=== PATIENT | male | born 1955 | race Caucasian/White ===

== ENCOUNTER 2025-05-20 01:18 | Day surgery (SDC) | payer OTHER, SELFPAY ==
[2025-05-02 10:46] VITALS: BMI 38.5
--- OUTSIDE RECORDS SUMMARY | 2025-05-20 01:21 | XMS_ITS | Clinical Summary ---
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 Inject under the skin every 6 (six) months Active Active Problems No known active problems Social History Tobacco Use Types Packs/Day Years Used Date Smoking Tobacco: Never Assessed Sex and Gender Information Value Date Recorded Sex Assigned at Not on file Legal Sex Male 11:34 AM 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 Gender Identity Not on file Sexual Orientation Not on file Obstetrics History Last Filed Vital Signs Vital Sign Reading Time Taken Comments Blood Pressure 142/70 12/19/2024 8:37 AM 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 Pulse 92 12/19/2024 8:37 AM 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 Temperature 37.1 C (98.7 F) 12/19/2024 8:37 AM 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 Respiratory Rate 20 12/19/2024 8:37 AM 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 Oxygen Saturation 97% 12/19/2024 8:37 AM 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 Inhaled Oxygen Concentration - - Weight 114.8 kg (253 lb) 12/19/2024 8:37 AM 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 Height 172.7 cm (5' 8) 12/14/2024 12:12 PM 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 Body Mass Index 38.47 12/14/2024 12:12 PM 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 Plan of Treatment Health Maintenance Due Date Last Done Comments Colon Cancer Screening-Colonoscopy 1957 Depression Screening 1957 Fall Risk Assessment 1957 Hepatitis C Screening 1957 Prostate Cancer Screening-PSA 1957 Hepatitis B Screening 1975 Pneumococcal vaccine 65+ (1 of 1 - PCV) 2007 Zoster Vaccine (1 of 2) 2007 Abdominal Aortic Aneurysm (A AA) Screen 2022 Well Visit 65+ 2022 Covid-19 Vaccine (5 - 2023-2 5 season) 2024 11/30/2022, 11/09/2021, 02/13/2021, Additional history exists Influenza Vaccine (Season Ended) 2025 DTaP/Tdap/Td Vaccine (2 - Td or Tdap) 05/08/2031 05/08/[address] [place] [place] [id number] [facility] [address] Care Teams Assemblyman Or Woman Relationship Specialty Start Date End Date Nieves Dos Santos PA [address] [place] [id number] PCP - General Physician Police Worker 12/14/24
--- OUTSIDE RECORDS SUMMARY | 2025-05-20 01:21 | XMS_ITS | Data Portability ---
Author Organization [place] - [facility], Main Office Address [address] [place] [address] Assessment Encounter Date Assessment Date Assessment LastModified by Organization Details LastModified Time 07/08/2023 07/08/2023 cologuard negative Aug 2021 [email or web address] Not available 07/08/2023 09:05:05 Plan of Treatment Reminders Order Date Submit Date Provider Last Modified By Organization Details Last Modified Time Details Appointments None recorded. Lab lipid panel, serum 2022 023 RADHA Not available 3 16:33:24 CBC w/ auto diff 2022 023 [email or web address] 146 Not available 3 14:23:27 BMP, serum or plasma 2022 023 ac[facility]ford 146 Not available 14:23:27 hepatic function panel, serum 2022 023 acrawford 146 Not available 3 14:23:27 testosteron e, free + total, serum 2022 023 RADHA Not available 3 09:40:58 vitamin B12 + folate, serum or blood 2022 023 acrawford 146 Not available 3 14:23:26 TSH + free T4, serum 2022 023 acrawford 146 Not available 3 14:23:26 PSA, serum or plasma 2022 023 acrawford 146 Not available 3 14:23:27 HbA1c (hemoglobin A1c), blood 2022 023 acrawford 146 Not available 3 14:23:[address] referral 2022 023 [facility], [address] , [place], [address], 3 12:45:57 Procedures None recorded. Surgeries None recorded. Imaging None recorded. Medication Orders None recorded. Patient TargetsNo targets recorded. Patient InstructionsNo instructions recorded. 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 The patie nt will be conta cted to initi ate a new sampl e colle ction . TEST DESCR IPTIO N: [place] site algor ithmi c ulises sis of stool DNA-b ioaaron rivas with hemog lobin immun oassa y. Quant itati ve value s of indiv idual bioma rkers are not repor table and are not assoc iated with indiv idual bioma rker resul t refer ence range s. Colog uard is inten ded for color ectal cance r scree alfredo of adult s of eithe r sex, 45 years or older , who are at [facility] for color ectal cance r (CRC) . Colog uard has been appro tresa for use by the U.S. FDA. The perfo rmanc e of Colog uard was estab lishe d in a cross secti onal study of [facility] adult s aged 50-84 . Colog uard perfo rmanc e in patie nts ages 45 to 49 years was estim ated by sub-g roup ulises sis of near- age group s. Colon oscop ies perfo rmed for a posit ignacio resul t may find as the most clini jolanta signi fican t lesio n: color ectal cance r [4.0% ], advan shalini adeno ma (incl uding sessi le dipesh rafael polyp s great er than or equal to 1cm diame ter) [20%] or non- advan shalini adeno ma [31%] ; or no color ectal neopl adela [45%] . These estim ates are deriv ed from a prosp ectiv e cross -sect ional scree alfredo study of 0 indiv idual s at [place] [facility] risk for color ectal cance r who were scree collin with both Colog uard and colon oscop y. (Mynor Arreaga. et al, N Engl J Med 2014; 370(1 4):12 86-12 97.) Colog uard may produ ce a false negat ignacio or false posit ignacio resul t (no color ectal cance r or preca ncero us polyp prese nt at colon oscop y follo w up). A negat ignacio Colog uard test resul t does not guara ntee the absen ce of CRC or advan shalini adeno ma (pre- cance r). The curre nt Colog uard scree alfredo inter harry is every 3 years . (Amer ican Cance r Socie ty and U.S. Multi -Soci ety Task Force ). Colog uard perfo rmanc e data in a 0 patie nt pivot al study using colon oscop y as the refer ence metho d [facility] locat ion: www.e xactl abs.c om/re ignacio . Addit ional descr iptio n of the Colog uard test proce ss, warni ngs and preca ution s can be found at www.c ologu talia.c om. Not Available [facility] (Cologuard Orders Only) [address], [place], [address], 08/05/2021 22:13:27 08/25/20 21 08/25/2021 COLOG UARD cologuard result reportable negati ve negati ve NEGAT IGNACIO TEST RESUL T. A negat ignacio Colog uard resul t indic ates a low likel ihood that a color ectal cance r (CRC) or advan shalini adeno ma (flynn omato us polyp s with more advan shalini pre-m align ant featu res) is prese nt. The chanc e that a perso n with a negat ignacio Colog uard test has a color ectal cance r is less than 1 in 1500 (nega tive predi ctive value >99.9 %) or has an advan shalini adeno ma is less than 5.3% (nega tive predi ctive value 94.7% ). These data are based on a prosp ectiv e cross -sect ional study of ,00 0 indiv idual s at [place] risk for color ectal cance r who were scree collin with both Colog uard and colon oscop y. (Mynor Edmondson et al, N Engl J Med 2014; 370(1 4):12 86-12 97) The dony l value (refe rence range ) for this assay is negat ignacio. COLOG UARD RE-SC ELELN GUZMAN RECOM MENDA TION: Perio dic color ectal cance r scree alfredo is an impor tant part of preve ntive healt hcare for asymp tomat ic indiv idual s at [place] risk for color ectal cance r. Follo wing a negat ignacio Colog uard resul t, the Ameri can Cance r Socie ty and U.S. Multi -Soci ety Task Force scree alfredo guide lines recom mend a Colog uard re-sc reeveronica ng inter harry of 3 years . Refer ences : Ameri can Cance r Socie ty Guide line for Color ectal Cance r Scree alfredo: https ://maggie w.can cer.o rg/ca ncer/ colon -rect al-ca ncer/ detec tion- diagn osis- stagi ng/ac s-rec ommen datio ns.ht ml.; Jas TOVAR, Wilberto strong CR, Adair TaylorK, Color ectal Cance r Scree alfredo: Recom menda tions for Physi cians and Patie nts from the U.S. Multi -Soci ety Task Force on Color ectal Cance r Scresana fuentes , Am J Shayy flowersnte rolog y 2017; 112:1 016-1 030. TEST DESCR IPTIO N: [place] site algor ithmi c ulises sis of stool DNA-b micaela rivas with hemog lobin immun oassa y. Quant itati ve value s of indiv idual bioma rkers are not repor table and are not assoc iated with indiv idual bioma rker resul t refer ence range s. Colog uard is inten ded for color ectal cance r scree alfredo of adult s of eithe r sex, 45 years or older , who are at [facility] for color ectal cance r (CRC) . Colog uard has been appro tresa for use by the U.S. FDA. The perfo rmanc e of Colog uard was estab lishe d in a cross secti onal study of [facility] adult s aged 50-84 . Colog uard perfo rmanc e in patie nts ages 45 to 49 years was estim ated by sub-g roup ulises sis of near- age group s. Colon oscop ies perfo rmed for a posit ignacio resul t may find as the most clini jolanta signi colleen t lesio n: color ectal cance r [4.0% ], advan shalini adeno ma (incl uding sessi le dipesh rafael polyp s great er than or equal to 1cm diame ter) [20%] or non- advan shalini adeno ma [31%] ; or no color ectal neopl adela [45%] . These estim ates are deriv ed from a prosp ectiv e cross -sect ional scree alfredo study of 10,00 0 indiv idual s at [facility] risk for color ectal cance r who were scree collin with both Colog uard and colon oscop y. (Mynor Edmondson et al, N Engl J Med 2014; 370(1 4):12 86-12 97.) Colog uard may produ ce a false negat ignacio or false posit ignacio resul t (no color ectal cance r or preca ncero us polyp prese nt at colon oscop y follo w up). A negat ignacio Colog uard test resul t does not guara ntee the absen ce of CRC or advan shalini adeno ma (pre- cance r). The curre nt Colog uard scree alfredo inter harry is every 3 years . (Amer ican Cance r Socie ty and U.S. Multi -Soci ety Task Force ). Colog uard perfo rmanc e data in a 10,00 0 patie nt pivot al study using colon oscop y as the refer ence metho d can be acces sed at the follo wing locat ion: www.e xactl abs.c om/re sults . Addit ional descr iptio n of the Colog uard test proce ss, warni ngs and preca ution s can be found at www.c addison talia.c om. Not Available [facility] (Cologuard Orders Only) [address], [place], [address], 09/04/2021 21:25:02 Result Notes None recorded. Problems Name Problem SNOMED Code Status Onset Date Resolution Date Notes Provider Name and Address Organization Details Recorded Time Strain of hamstring tendon 484264694 Active 2021 Not Available formerly [facility] 3 18:03:17 Obstructive sleep apnea syndrome 15058941 Active Not Available [facility] 3 18:03:17 Psoriasis 5441301 Active 2021 Not Available formerly [facility] 3 18:03:17 Seasonal allergic rhinitis 886989897 Active 2022 LENNOX Pal [address], [place], [address] , [employer] 3 11:31:55 Fatigue 53526996 Active 2022 LENNOX Pal [address] [facility], [address], [place], [address] , [employer] 3 09:20:19 Problem Notes None recorded. Procedures Surgical History Date Name Laterality Status Provider Name and Address Organization Details Recorded Time 08/03/202 0 Oral surgery procedure completed Not Available formerly [facility] 01/08/2023 18:02:41 Orthopedic Surgery completed Not Available formerly [facility] 01/08/2023 18:02:41 Imaging Results None recorded. Procedure Notes None recorded. Medical Equipment None Reported. Allergies Allergen ID Allergen Name Allergen Category Reaction Reaction Severity Criticality Documentation Date Start Date Code Code System Note Provider Name and Address Organization Details Recorded Time 15389 Product containin g penicilli n (product) medicatio n Not available Not available Not available 01/08/2023 74060 8001 SNOMED Not Available formerly [facility] 18:04:26 Medications Name Sig Start Date Stop Date Status Note LastModified by Organization Details LastModified Time silver sulfadiazin e 1 % topical cream APPLY TO HAND WOUND BY TOPICAL ROUTE 2 TIMES DAILY 07/05 completed Not Available Not Available Not Available clindamycin HCl 300 mg capsule TAKE 2 CAPSULE IMMEDIATE LY. THEN TAKE 1 EVERY 6 HOURS UNTIL GONE 07/07 completed Not Available Not Available Not Available azithromyci n 250 mg tablet TAKE 2 TABLETS (500 MG) BY ORAL ROUTE ONCE DAILY FOR 1 DAY THEN 1 TABLET (250 MG) BY ORAL ROUTE ONCE DAILY FOR 4 DAYS 07/04 completed Not Available Not Available Not Available prednisone 20 mg tablet 07/04 completed Not Available Not Available Not Available clindamycin HCl 150 mg capsule DNC 07/04 completed Not Available Not Available Not Available sulfamethox azole 800 mg-trimetho prim 160 mg tablet Take 1 tablet every 12 hours by oral route. 07/04 completed Not Available Not Available Not Available betamethaso ne dipropionat e 0.05 % topical cream JAMES THIN LAYER EXT AA QD PRN 07/04 completed Not Available Not Available Not Available montelukast 10 mg tablet TAKE 1 TABLET BY MOUTH DAILY 03/30 completed Not Available Not Available Not Available clobetasol 0.05 % topical ointment APPLY A THIN LAYER TO THE AFFECTED AREA(S) BY TOPICAL ROUTE 2 TIMES PER DAY PRN active Not Available Not Available No t Available chlorhexidi ne gluconate 0.12 % mouthwash SWISH AND SPIT 10 TO 15 ML BID FOR 1 WEEK BEFORE AND AFTER SURGERY 07/05 completed Not Available Not Available Not Available Flonase Allergy Relief 50 mcg/actuati on nasal spray,suspe nsion [place] 1 spray every day by intranasa l route. 03/30 completed Not Available Not Available Not Available Vitals Date Recorded Body mass index (BMI) Body height Oxygen saturation Oxygen saturation in Arterial blood by Pulse oximetry Heart rate Body temperature Body weight Systolic And Diastolic Provider Name and Address Organization Details Last Updated DateTime 1 30 kg/m2 172.72 cm 97 % 97 % 64 /min 97.6 [degF] 92206.7 g 120/60 mm[Hg] Not Available [facility] 3 18:03:09 Date Recorded Body mass index (BMI) Body height Oxygen saturation Oxygen saturation in Arterial blood by Pulse oximetry Heart rate Respiratory rate Body temperature Body weight Systolic And Diastolic Provider Name and Address Organization Details Last Updated DateTime 1 29.8 kg/m2 172.72 cm 98 % 98 % 62 /min 16 /min 97.3 [degF] 29878.1 g 128/80 mm[Hg] Not Available [facility] 3 18:03:10 Date Recorded Body mass index (BMI) Body height Oxygen saturation Oxygen saturation in Arterial blood by Pulse oximetry Heart rate Respiratory rate Body temperature Body weight Systolic And Diastolic Provider Name and Address Organization Details Last Updated DateTime 2 33.3 kg/m2 172.72 cm 96 % 96 % 64 /min 16 /min 97 [degF] 11715.4 5 g 128/80 mm[Hg] Not Available formerly [facility] 3 18:03:10 Date Recorded Systolic And Diastolic Provider Name and Address Organization Details Last Updated DateTime 07/08/2023 114/72 mm[Hg] LENNOX Pal [address] [facility] [facility] [address], [place], [address], [place] [facility] [employer] [facility] 07/08/2023 09:21:36 Date Recorded Body height Body temperature Body mass index (BMI) Body weight Respiratory rate Oxygen saturation Oxygen saturation in Arterial blood by Pulse oximetry Heart rate Systolic And Diastolic Provider Name and Address Organization Details Last Updated DateTime 3 172.72 cm 97.3 [degF] 33.1 kg/m2 30311.1 4 g 16 /min 97 % 97 % 60 /min 120/80 mm[Hg] SabrinaTRISTIAN Jansen [place] [facility] 09:01:27 Social History Question Answer Notes LastModified by Organizat ion Details LastModified Time Tobacco Smoking Status Never Smoker Not Available [facility] 01/08/2023 18:02:39 What Is Your Level Of Caffeine Consumption? Occasional [id number] Information not available 01/08/2023 How Much Tobacco Do You Chew? None [id number] Information not available 01/08/2023 In The 14 Days Before Symptom Onset, Have You Had Close Contact With A Laboratory-confirm ed COVID-19 While That Case Was Ill? No [id number] Information not available 01/08/2023 In The 14 Days Before Symptom Onset, Have You Had Close Contact With A Person Who Is Under Investigation For COVID-19 While That Person Was Ill? No [id number] Information not available 01/08/2023 What Type Of Diet Are You Following? REGULAR [id number].[id number] Information not available 01/08/2023 Which Illicit Or Recreational Drugs Have You Used? None [id number].[id number] Information not available 01/08/2023 Have There Been Any Changes To Your Family Or Social Situation? No [id number].[id number] 0809 Information not available 01/08/2023 Do You Use Insect Repellent Routinely? No [id number] Information not available 01/08/2023 What Is Your Relationship Status? MIGRATION.[id number] [id number] Information not available 01/08/2023 Do You Use Your Seat Belt Or Car Seat Routinely? Yes [id number].[id number] [id number] Information not available 01/08/2023 Do You Have Smoke And Carbon Monoxide Detectors In Your Home? Yes MIGRATION.[id number] 3203 Information not available 01/08/2023 How Much Tobacco Do You Smoke? No MIGRATION.[id number] 9960 Information not available 01/08/2023 Do You Use Sunscreen Routinely? No MIGRATION.[id number] 5138 Information not available 01/08/2023 Have You Recently Traveled Abroad? No MIGRATION.[id number] 9386 Information not available 01/08/2023 Do You Have Any Dietary Restrictions? No MIGRATION.[id number] 5019 Information not available 01/08/2023 Sex: Unknown Functional Status Question Answer Note LastModified by Organizat ion Details LastModified Time Do you use any illicit or recreational drugs? No [id number].[id number] 0171 Information not available 01/08/2023 Do you or have you ever used any other forms of tobacco or nicotine? No MIGRATION.803080 9912 Information not available 01/08/2023 What is your level of alcohol consumption? None MIGRATION.[id number] 4187 Information not available 01/08/2023 Do you or have you ever used smokeless tobacco? 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 Never used electronic cigarettes MIGRATION.[id number] 9185 Information not available 01/08/2023 What is your exercise level? Occasional MIGRATION.[id number] 8921 Information not available 01/08/2023 Mental Status None recorded. Family History Relationship Description Onset Age of this Age Resolved Age Notes LastModified by Organization Details LastModified Time Mother Heart disease [id number] Not available 01/08/2023 18:02:42 Father Alzheimer's disease 85 [id number] Not available 01/08/2023 18:02:42 Medical History Condition Response SLEEP DISORDER Y Immunizations Vaccine Type Date Status Note Provider Nam e and Address Organization Details Recorded Time Tdap 05/08/2021 completed Not Available [employer] 01/08/2023 18:04:24 Past Encounters Encounter ID Performer Location Encounter Start Date Encounter Closed Date Diagnosis/Indication Diagnosis SNOMED-CT Code Diagnosis ICD10 Code Diagnosis Note [id number] L[facility] Pal Nisha[facility] [place] [address] [place] [address] 05/03/2021 00:00:00 05/03/2021 13:57:01 [id number] [facility] [place] [address] [place] [address] 05/08/2021 00:00:00 05/08/2021 17:54:11 [id number] LENNOX Pal Nisha_[facility] [place] [address] [place] [address] 07/05/2021 00:00:00 07/05/2021 17:24:30 [id number] Jayce Wharton MD [facility] [place] [address] [place] [address] 07/05/2022 00:00:00 07/10/2022 20:19:22 [id number] LENNOX Pal [facility] [place] [address] [place] [address] 07/08/2023 08:56:00 07/08/2023 09:32:10 Adult health examination 900465583 Z00.01 well exam completed Obstructiv e sleep apnea syndrome 20572892 G47.33 stable on cpap Psoriasis 2466054 L40.9 refer to derm for formal management Cholesterol screening 27 0281140 Z13.220 fasting lipids due Diabetes m ellitus screening 935020530 Z13.1 diabetes screening due Screening for malignant neoplasm of prostate 946776258 Z12.5 PSA due Long-term drug therapy 474046109 Z79.899 routine CBC, cmp and LFT due Seasonal a llergic rhinitis 176255425 J30.2 stable on singulair 10mg daily Fatigue 00799574 R53.83 pt would like testostero ne checked with vitamins. Health Concerns Section Related Observation LastModified by Organization Detai ls LastModified Time None Recorded Concern Status LastModified by Organization Details LastModified Time None Recorded Advance Directives Directive None Recorded Payers Insurance Date Sequence Insurance Name Policy Number Policy Lamas Covered Member ID Lamas Member ID Guarantor Name 07/04/2023 1 [facility] [id number] [employer] [id number] [employer] Notes Date Note Type Note Provider Name and Address Organization Details Recorded Time 05/03/2021 text/html General PainRepo rted bypatient.Location:pa in radiating to the buttocks;pain radiating to the legs left Severity:pain level without meds 3/10;interference with work Timing:constant; sudden Quality:dull Duration:present <1 month Aggravating Factors:movement/posi tioning; bending over; twistingNotes:Straine d his Left hamstring/ glut Not Available [place] [facility] [employer] [facility] 05/03/2021 13:57:01 07/05/2021 text/html Generic HPI TemplateReported bypatient.Quality:DAVID Alleviating factors:wears cpap Not Available [place] [facility] [employer] [facility] 07/05/2021 17:24:30 07/05/2022 text/html Obstructive Slee p Apnea F/UReported bypatient.Quality:no loud snoring; no gasping for air; no witnessed apnea; no hyponasal speech; no frequent breathing through the mouth Onset/Timing:chronic Duration:continuous Severity:does not limit daily activities; no frequent sore throats resulting in excess missed days from school / work per year; no difficulty getting going in the morning; no awakening in the middle of the night with sore throat Location:no enlarged tonsils; no nasal passage blockage; no throat pain; no feeling of tightness in throat; no dryness of mouth; no chest congestion Context:no lack of adequate sleep; no shift work; not currently taking medication to help sleep; no recent weight gain; no recent upper respiratory infection; no recent sick contacts; not worse with environmental exposure; not worse with seasonal allergen exposure; no hypertension; normal sleep hours Alleviating factors:relief with CPAP Aggravating factors:not worse during an upper respiratory infection (a cold); not worse when allergies are active Associated Symptoms:no morning headache; no awakening at night short of breath; no sweating heavily at night; no excessive sleepiness during the day; no suddenly falling asleep during the day; no napping; no impaired work performace; no nasal congestion Not Available [email or web address] [facility] 07/10/2022 20:19:22 07/08/2023 text/html Obstructive Slee p Apnea F/UReported bypatient.Quality:no loud snoring; no gasping for air; no witnessed apnea; no hyponasal speech; no frequent breathing through the mouth Onset/Timing:chronic Duration:continuous Severity:does not limit daily activities; no frequent sore throats resulting in excess missed days from school / work per year; no difficulty getting going in the morning; no awakening in the middle of the night with sore throat Location:no enlarged tonsils; no nasal passage blockage; no throat pain; no feeling of tightness in throat; no dryness of mouth; no chest congestion Context:no lack of adequate sleep; no shift work; not currently taking medication to help sleep; no recent weight gain; no recent upper respiratory infection; no recent sick contacts; not worse with environmental exposure; not worse with seasonal allergen exposure; no hypertension; normal sleep hours Alleviating factors:relief with CPAP Aggravating factors:not worse during an upper respiratory infection (a cold); not worse when allergies are active Associated Symptoms:no morning headache; no awakening at night short of breath; no sweating heavily at night; no excessive sleepiness during the day; no suddenly falling asleep during the day; no napping; no impaired work performace; no nasal congestion Wellness LENNOX Pal [address] [facility] [address], [place], [address], [facility] [employer] 07/08/2023 10:25:54
--- OUTSIDE RECORDS SUMMARY | 2025-05-20 01:21 | XMS_ITS | Referral Summary ---
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 Gender Identity Not on file Sexual Orientation Not on file Last Filed Vital Signs Vital Sign Reading Time Taken Comments Blood Pressure 142/70 12/19/2024 8:37 AM FACULTY NEUROPSYCHOLOGIST Pulse 92 12/19/2024 8:37 AM FACULTY NEUROPSYCHOLOGIST Temperature 37.1 C (98.7 F) 12/19/2024 8:37 AM FACULTY NEUROPSYCHOLOGIST Respiratory Rate 20 12/19/2024 8:37 AM FACULTY NEUROPSYCHOLOGIST Oxygen Saturation 97% 12/19/2024 8:37 AM FACULTY NEUROPSYCHOLOGIST Inhaled Oxygen Concentration - - Weight 114.8 kg (253 lb) 12/19/2024 8:37 AM FACULTY NEUROPSYCHOLOGIST Height 172.7 cm (5' 8) 12/14/2024 12:12 PM FACULTY NEUROPSYCHOLOGIST Body Mass Index 38.47 12/14/2024 12:12 PM FACULTY NEUROPSYCHOLOGIST Plan of Treatment Not on [place] [place] [id number] [facility] CHOICE PLUS [facility] H[facility]/PPO Address: [address] [address] Care Teams Platform Stapler Relationship Specialty Start Date End Date Nieves Dos Santos PA [address] [place] [id number] PCP - General Physician Hand Inspector 12/14/24
--- OUTSIDE RECORDS SUMMARY | 2025-05-20 01:21 | XMS_ITS | Data Portability ---
Author Organization [facility] Address [address] [facility] [place] [place] [address] Care Team Providers Care Cook Camp Name Role Phone SALVADOR DOTY Primary Care Provider Unavailab le Assessment Encounter Date Assessment Date Assessment LastModified by Organization Details LastModified Time 12/02/2024 12/02/2024 Recent labs show a PSA of 1.6, A1c of 5.6, kidney and liver function stable, thyroid normal. [facility] dental: UTD eye exam with Dr. Sunshine UTD Not available 12/02/2024 09:20:50 Plan of Treatment Reminders Order Date Submit Date Provider Last Modified By Organization Details Last Modified Time Details Appointments None recorded. Lab None recorded. Referral None recorded. Procedures colonoscopy screening (PROC) [address] [facility], [address], [id number], [place], [address], 08:39:35 Surgeries None recorded. Imaging None recorded. Medication Orders Zepbound 2.5 mg/0.5 mL subcutaneou s pen injector 2024 025 [id number], [address], [place], [address], 5 17:36:25 montelukast 10 mg tablet 2024 025 [facility], [facility] [address], [facility] [place], [place], [id number], 09:14:14 Patient TargetsNo targets recorded. Patient Instructions Encounter Date Encounter Id Patient Instructions Last Modified By Organization Details Last Modified Time 12/02/2024 [id number] A healthy lifestyle: care instructions Not available 12/02/2024 09:08:58 04/12/2025 [id number] A healthy lifestyle: care instructions Not available 04/12/2025 16:50:31 Reason for Referral None Reported. Results Created Date Observation Date Name Description Value Unit Range Abnormal Flag Note LastModifiedBy Organization Detail LastModifiedTime 11/12/1911/13/2024 TSH+F REE T4 TSH 1.740 uIU/m L 0.450- 4.500 Not Available [facility]) [address] [place], [address], 11/13/2024 11:07:04 11/12/19 25 11/13/2024 TSH+F REE T4 T4,free(dire ct) 1.53 NG/dL 0.82-1 .77 Not Available [facility] ([facility]) [address] [place], [address], 11/13/2024 11:07:04 11/12/19 25 11/13/2024 LIPID PANEL WITH LDL/H DL RATIO cholesterol, total 235 mg/dL 100-19 9 above high normal Not Available [facility] ([facility]) [address] [place], [address], 11/13/2024 11:07:05 11/12/19 25 11/13/2024 LIPID PANEL WITH LDL/H DL RATIO triglyceride s 139 mg/dL 0-149 Not Available [facility]) [address] [place], [address], 11/13/2024 11:07:05 11/12/19 25 11/13/2024 LIPID PANEL WITH LDL/H DL RATIO HDL cholesterol 81 mg/dL >39 Not Available [facility] [address] [place], [address], 11/13/2024 11:07:05 11/12/19 25 11/13/2024 LIPID PANEL WITH LDL/H DL RATIO VLDL cholesterol tommie 24 mg/dL 5-40 Not Available [facility]) [address] [place], [address], 11/13/2024 11:07:05 11/12/19 25 11/13/2024 LIPID PANEL WITH LDL/H DL RATIO LDL chol calc ([facility]) 130 mg/dL 0-99 above high normal Not Available [facility] ([facility]) [address] [facility] [place], [address], 11/13/2024 11:07:05 11/12/19 25 11/13/2024 LIPID PANEL WITH LDL/H DL RATIO LDL/HDL ratio 1.6 ratio 0.0-3. 6 LDL/H DL Ratio Men Women 1/2 Avg.R isk 1.0 1.5 Avg.R isk 3.6 3.2 2X Avg.R isk 6.2 5.0 3X Avg.R isk 8.0 6.1 Not Available [facility] ([facility]) [address] [place], [address], 11/13/2024 11:07:05 11/12/19 25 11/13/2024 HEPAT IC FUNCT ION PANEL (7) protein, total 6.8 g/dL 6.0-8. 5 Not Available [facility] ([facility]) [address] [place], [address], 11/13/2024 11:07:06 11/12/19 25 11/13/2024 HEPAT IC FUNCT ION PANEL (7) albumin 4.5 g/dL 3.9-4. 9 Not Available [facility] ([facility]) [address] [place], [address], 11/13/2024 11:07:06 11/12/19 25 11/13/2024 HEPAT IC FUNCT ION PANEL (7) bilirubin, total 0.5 mg/dL 0.0-1. 2 Not Available [facility] ([facility]) [address] [place], [address], 11/13/2024 11:07:06 11/12/19 25 11/13/2024 HEPAT IC FUNCT ION PANEL (7) bilirubin, direct 0.16 mg/dL 0.00-0 .40 Not Available [facility] ([facility]) [address] [place], [address], 11/13/2024 11:07:06 11/12/19 25 11/13/2024 HEPAT IC FUNCT ION PANEL (7) alkaline phosphatase 78 IU/L 44-121 Not Available [facility] [address] [place], [address], 11/13/2024 11:07:06 11/12/19 25 11/13/2024 HEPAT IC FUNCT ION PANEL (7) AST (SGOT) 26 IU/L 0-40 Not Available [facility] ([facility]) [address] [facility] [place], [address], 11/13/2024 11:07:06 11/12/19 25 11/13/2024 HEPAT IC FUNCT ION PANEL (7) ALT (SGPT) 40 IU/L 0-44 Not Available [facility] ([facility]) [address] [facility] [place], [address], 11/13/2024 11:07:06 11/12/19 25 11/13/2024 BMP7+ EGFR glucose 108 mg/dL 70-99 above high normal Not Available [facility] ([facility]) [address] [facility] [place], [address], 11/13/2024 11:07:07 11/12/19 25 11/13/2024 BMP7+ EGFR BUN 17 mg/dL 8-27 Not Available [facility] ([facility]) [address] [facility] [place], [address], 11/13/2024 11:07:07 11/12/19 25 11/13/2024 BMP7+ EGFR creatinine 0.79 mg/dL 0.76-1 .27 Not Available [facility] ([facility]) [address] [place], [address], 11/13/2024 11:07:07 11/12/19 25 11/13/2024 BMP7+ EGFR eGFR 98 mL/mi n/1.7 3 >59 Not Available [facility] ([facility]) [address] [facility], [place], [address], 11/13/2024 11:07:07 11/12/19 25 11/13/2024 BMP7+ EGFR sodium 140 mmol/ L 134-14 4 Not Available [facility] ([facility]) [address] [facility], [place], [address], 11/13/2024 11:07:07 11/12/19 25 11/13/2024 BMP7+ EGFR potassium 4.2 mmol/ L 3.5-5. 2 Not Available [facility] ([facility]) [address] [place], [address], 11/13/2024 11:07:07 11/12/19 25 11/13/2024 BMP7+ EGFR chloride 102 mmol/ L 96-106 Not Available [facility] ([facility]) [address] [place], [address], 11/13/2024 11:07:07 11/12/19 25 11/13/2024 BMP7+ EGFR carbon dioxide, total 20 mmol/ L 20-29 Not Available [facility] ([facility]) [address] [place], [address], 11/13/2024 11:07:07 11/12/19 25 11/13/2024 HEMOG LOBIN A1C hemoglobin A1C 5.6 % 4.8-5. 6 Predi abete s: 5.7 - 6.4 Diabe ernesto: >6.4 Glyce alejandra contr ol for adult s with diabe ernesto: <7.0 Not Available [facility] ([facility]) [address] [facility], [place], [address], 11/13/2024 11:07:08 11/12/19 25 11/13/2024 CBC WITH DIFFE RENTI AL/PL ATELE T WBC 6.7 x10e3 /uL 3.4-10 .8 Not Available [facility] ([facility]) [address] [facility], [place], [address], 11/13/2024 11:07:09 11/12/19 25 11/13/2024 CBC WITH DIFFE RENTI AL/PL ATELE T RBC 4.86 x10e6 /uL 4.14-5 .80 Not Available [facility] ([facility]) [address] [facility], [place], [address], 11/13/2024 11:07:09 11/12/19 25 11/13/2024 CBC WITH DIFFE RENTI AL/PL ATELE T hemoglobin 15.2 g/dL 13.0-1 7.7 Not Available [facility] ([facility]) [address] [facility], [place], [address], 11/13/2024 11:07:09 11/12/19 25 11/13/2024 CBC WITH DIFFE RENTI AL/PL ATELE T hematocrit 45.8 % 37.5-5 1.0 Not Available [facility] ([facility]) [address] [facility], [place], [address], 11/13/2024 11:07:09 11/12/19 25 11/13/2024 CBC WITH DIFFE RENTI AL/PL ATELE T MCV 94 fL 79-97 Not Available [facility] ([facility]) [address] [facility], [place], [address], 11/13/2024 11:07:09 11/12/19 25 11/13/2024 CBC WITH DIFFE RENTI AL/PL ATELE T MCH 31.3 pg 26.6-3 3.0 Not Available [facility]) [address] [facility], [place], [address], 11/13/2024 11:07:09 11/12/19 25 11/13/2024 CBC WITH DIFFE RENTI AL/PL ATELE T MCHC 33.2 g/dL 31.5-3 5.7 Not Available [facility]) [address] [facility], [place], [address], 11/13/2024 11:07:09 11/12/19 25 11/13/2024 CBC WITH DIFFE RENTI AL/PL ATELE T RDW 12.5 % 11.6-1 5.4 Not Available [facility]) [address] [facility], [place], [address], 11/13/2024 11:07:09 11/12/19 25 11/13/2024 CBC WITH DIFFE RENTI AL/PL ATELE T platelets 236 x10e3 /uL 150-45 0 Not Available [facility] ([facility]) [address] [facility], [place], [address], 11/13/2024 11:07:09 11/12/19 25 11/13/2024 CBC WITH DIFFE RENTI AL/PL ATELE T neutrophils 58 % notest ab. Not Available [facility] ([facility]) [address] [facility], [place], [address], 11/13/2024 11:07:09 11/12/19 25 11/13/2024 CBC WITH DIFFE RENTI AL/PL ATELE T lymphs 31 % notest ab. Not Available [facility] ([facility]) [address] [place], [address], 11/13/2024 11:07:09 11/12/19 25 11/13/2024 CBC WITH DIFFE RENTI AL/PL ATELE T monocytes 9 % notest ab. Not Available [facility]) [address] [facility], [place], [address], 11/13/2024 11:07:09 11/12/1911/13/2024 CBC WITH DIFFE RENTI AL/PL ATELE T eos 1 % notest ab. Not Available [facility]) [address] [facility], [place], [address], 11/13/2024 11:07:09 11/12/19 25 11/13/2024 CBC WITH DIFFE RENTI AL/PL ATELE T basos 0 % notest ab. Not Available [facility]) [address] [facility], [place], [address], 11/13/2024 11:07:09 11/12/19 25 11/13/2024 CBC WITH DIFFE RENTI AL/PL ATELE T neutrophils (absolute) 3.9 x10e3 /uL 1.4-7. 0 Not Available [facility] ([facility]) [address] [facility], [place], [address], 11/13/2024 11:07:09 11/12/1911/13/2024 CBC WITH DIFFE RENTI AL/PL ATELE T lymphs (absolute) 2.1 x10e3 /uL 0.7-3. 1 Not Available [facility] ([facility]) [address] [facility], [place], [address], 11/13/2024 11:07:09 11/12/19 25 11/13/2024 CBC WITH DIFFE RENTI AL/PL ATELE T monocytes(ab solute) 0.6 x10e3 /uL 0.1-0. 9 Not Available [facility] ([facility]) [address] [facility], [place], [address], 11/13/2024 11:07:09 11/12/19 25 11/13/2024 CBC WITH DIFFE RENTI AL/PL ATELE T eos (absolute) 0.1 x10e3 /uL 0.0-0. 4 Not Available [facility] ([facility]) [address] [place], [address], 11/13/2024 11:07:09 11/12/19 25 11/13/2024 CBC WITH DIFFE RENTI AL/PL ATELE T baso (absolute) 0.0 x10e3 /uL 0.0-0. 2 Not Available [facility]) [address] [facility], [place], [address], 11/13/2024 11:07:09 11/12/19 25 11/13/2024 CBC WITH DIFFE RENTI AL/PL ATELE T immature granulocytes 1 % notest ab. Not Available [facility]) [address] [facility], [place], [address], 11/13/2024 11:07:09 11/12/1911/13/2024 CBC WITH DIFFE RENTI AL/PL ATELE T immature grans (abs) 0.0 x10e3 /uL 0.0-0. 1 Not Available [facility] ([facility]) [address] [facility], [place], [address], 11/13/2024 11:07:09 11/12/1911/13/2024 PROST ATE-S PECIF IC AG prostate specific Ag 1.6 NG/mL 0.0-4. 0 Brian ECLIA metho dolog y. Accor ding to the Ameri can Urolo gical Assoc iatio n, Serum PSA shoul d decre ase and remai n at undet ectab le level s after radic al prost atect blane. The AUA defin es bioch emica l recur rence as an initi al PSA value 0.2 ng/mL or great er follo wed by a subse quent confi rmato ry PSA value 0.2 ng/mL or great er. Value s obtai collin with diffe rent assay metho ds or kits canno t be used inter posadas eably . Resul ts canno t be inter prete d as absol [place] evide nce of the prese nce or absen ce of rayo holley se. Not Available [facility] ([facility]) [address] [facility], [place], [address], 11/13/2024 11:07:10 Result Notes None recorded. Problems Name Problem SNOMED Code Status Onset Date Resolution Date Notes Provider Name and Address Organization Details Recorded Time Body mass index 30+ - obesity 467784213 Active 2024 Sheila Chávez MA null, [place] - [facility] 5 09:01:47 Obesity 275082367 Active 2024 LENNOX Pal Attn: Ravi leon,[address] [place], [address], [place] - [facility] 5 09:07:42 Hyperlipide charley 69505702 Active 2024 LENNOX Pal Attn: Ravi leon,[address] [place], [address], [place] [facility] 5 09:08:22 Psoriasis 4160173 Active 2024 LENNOX Pal Attn: Ravi leon,[address] [place], [address], [place] [facility] 5 09:09:39 Long-term drug therapy Active 2024 LENNOX Pal Attn: Ravi leon,[address] [place], [address], [place] [facility] 5 09:12:36 Seasonal allergic rhinitis 134799789 Active 2024 LENNOX Pal Attn: Ravi g,[address] [place], [address], [place] [facility] 5 09:13:31 Obese class II 3115349612348 05 Active 2024 LENNOX Pal Attn: Ravi g,[address] [place], [address], [place] [facility] 16:44:03 Obstructive sleep apnea syndrome 03392321 Active 2024 LENNOX Pal Attn: Ravi leon,[address] [facility], [place], [address], [place] [facility] 23:06:57 Increased blood pressure 47692775 Active 2024 LENNOX Pal Attn: Accountin g,[address] [facility], [place], [address], [place] - [facility] 23:08:03 Problem Notes None recorded. Medical Equipment None Reported. Allergies Allergen ID Allergen Name Allergen Category Reaction Reaction Severity Criticality Documentation Date Start Date Code Code System Note Provider Name and Address Organization Details Recorded Time 18160212 Product containin g penicilli n (product) medicatio n Not available Not available Not available 12/02/2024 29792419 0561 SNOMED from Sheila Chávez MA [facility], [place] - [facility] 09:02:20 Medications Name Sig Start Date Stop Date Status Note LastModified by Organization Details LastModified Time Flonase 50 mcg/actuati on nasal spray,suspe nsion [place] 1 spray every day by intranasa l route. active Not Available Not Available No t Available montelukast 10 mg tablet TAKE 1 TABLET BY MOUTH DAILY 2024 active Not Available Not Available Not Avai javad Arredondo active mail Not Available Not Avail able Not Available Zepbound 2.5 mg/0.5 mL subcutaneou s pen injector Inject 2.5 mg every week by subcutane ous route. 04/21 completed Not Available Not Available Not Available Vitals Date Recorded Respiratory rate Systolic And Diastolic Systolic And Diastolic Provider Name and Address Organization Details Last Updated DateTime 12/02/2024 16 /min 140/80 mm[Hg] 138/80 mm[Hg] LENNOX Pal Attn: Accounting, [address] [facility], [place], [address], [place] 12/02/2024 09:26:52 Date Recorded Body weight Body mass index (BMI) Body height Oxygen saturation Oxygen saturation in Arterial blood by Pulse oximetry Heart rate Systolic And Diastolic Provider Name and Address Organization Details Last Updated DateTime 158250. 46 g 38.6 kg/m2 172.72 cm 97 % 97 % 75 /min 142/82 mm[Hg] Sheila Chávez MA [facility] 09:06:37 Date Recorded Respiratory rate Systolic And Diastolic Provider Name and Address Organization Details Last Updated DateTime 04/12/2025 16 /min 140/80 mm[Hg] LENNOX Pal Attn: Accounting,[address] [facility], [place], [address], [facility] 04/12/2025 16:58:20 Date Recorded Body height Body mass index (BMI) Body weight Oxygen saturation Oxygen saturation in Arterial blood by Pulse oximetry Heart rate Systolic And Diastolic Provider Name and Address Organization Details Last Updated DateTime 172.72 cm 38.9 kg/m2 914884. 65 g 97 % 97 % 67 /min 146/80 mm[Hg] Sheila Chávez MA [facility] 16:23:21 Social History Question Answer Notes LastModified by Organizat ion Details LastModified Time Tobacco Smoking Status Never Smoker Sheila Chávez MA null, [facility] 04/12/2025 16:23:54 Do You Have An Advance Directive? Yes Will Information not available 12/02/2024 Are You Blind Or Do You Have Difficulty Seeing? No Glasses Information not available 12/02/2024 What Is Your Level Of Caffeine Consumption? Heavy 3 Cups Of Coffee Information not available 12/02/2024 In The 14 Days Before Symptom Onset, Have You Had Close Contact With A Laboratory-confir med COVID-19 While That Case Was Ill? No Information not available 12/02/2024 In The 14 Days Before Symptom Onset, Have You Had Close Contact With A Person Who Is Under Investigation For COVID-19 While That Person Was Ill? No Information not available 12/02/2024 Have You Been To An Area Known To Be High Risk For COVID-19? No Information not available 12/02/2024 Are You Deaf Or Do You Have Serious Difficulty Hearing? No Information not available 12/02/2024 What Type Of Diet Are You Following? REGULAR Information not available 12/02/2024 Are There Any Guns Present In Your Home? No Information not available 12/02/2024 What Was The Date Of Your Most Recent Tobacco Screening? 04/12/2025 Information not available 04/12/2025 What Is Your Relationship Status? Information not available 12/02/2024 Do You Use Your Seat Belt Or Car Seat Routinely? Yes Information not available 12/02/2024 Do You Have Smoke And Carbon Monoxide Detectors In Your Home? Yes Information not available 12/02/2024 Has Tobacco Cessation Counseling Been Provided? No Information not available 04/12/2025 Sex: Male Functional Status Question Answer Note LastModified by Organizat ion Details LastModified Time Do you use any illicit or recreational drugs? No Information not available 12/02/2024 Do you or have you ever used any other forms of tobacco or nicotine? No Information not available 04/12/2025 What is your level of alcohol consumption? Occasional Information not available 04/12/2025 Are you able to care for yourself? Yes Information n ot available 12/02/2024 Mental Status None recorded. Family History Relationship Description Onset Age of this Age Resolved Age Notes LastModified by Organization Details LastModified Time Daughter Malignant tumor of colon 46 has recent ly occure d tcarterma Not available 04/12/2025 16:20:23 Medical History No medical history recorded. Past Encounters Encounter ID Performer Location Encounter Start Date Encounter Closed Date Diagnosis/Indication Diagnosis SNOMED-CT Code Diagnosis ICD10 Code Diagnosis Note [id number] Jayce Wharton MD [facility] [address] [place] [address] 12/02/2024 08:53:24 12/02/2024 09:36:50 Body mass index 30+ - obesity 484419874 Z68.38 BMI is 38.6 Obesity 480140603 E66.9 discussed healthy diet, exercise, controllin g carbohydra ernesto and added sugars in the diet Long-term drug therapy 170815431 Z79.891 Labs reviewed today Adult heal th examination 655291813 Z00.01 annual wellness completed. Hyperlipidemia 47792647 E78.5 Recent labs show LDL at 130, HDL 81, triglyceri robert 139 and total cholestero l at 235. Overall ratio is 1.6. This is quite stable with no acute concerns. Patient has a terrific HDL for cardio protection . Psoriasis 9383343 L40.9 Patient follows with dermatolog y and is stable on SkyRizi since Fall 2023. Seasonal a llergic rhinitis 247049970 J30.2 Refill on Singulair 10 mg daily for year-round allergies Screening for malignant neoplasm of colon 422155494 Z12.11 Refer for colonoscop y. Daughter was diagnosed with rectal cancer more recently. [id number] Jayce Wharton MD [facility] [place] [address] [place] [address] 04/12/2025 16:01:44 04/13/2025 11:54:14 Body mass index 30+ - obesity 956890483 Z68.38 BMI is 38.9. start zepbound injectable therapy. no personal or family hx of Medullary thyroid cancer or MEN conditions . Obese class II 191309697 1 [address] E66.812 discussed healthy diet, exercise, controllin g carbohydra ernesto and added sugars in the diet Obstructiv e sleep apnea syndrome 26865612 G47.33 Patient is on CPAP therapy nightly. He is adherent to using this to manage his sleep apnea. Unfortunat rafi he has not lost any weight despite his adherence. He is interested in Zepbound therapy initiation . Increased blood pressure 75078676 R03.0 Blood pressure is 140/80 on exam today. His weight gain is contributi ng to an escalation in his blood pressure. At this time the best treatment is going to be any method and management plan that we can find that will help to achieve weight loss and this will also treat his mild elevation in blood pressure. For the time being will have him to continue exercise 3-4 times per week 20-30 minute increments and decrease caffeine and sodium in the diet. Health Concerns Section Related Observation LastModified by Organization Detai ls LastModified Time None Recorded Concern Status LastModified by Organization Details LastModified Time None Recorded Advance Directives Directive Y: Will Payers Insurance Date Sequence Insurance Name Policy Number Policy Lamas Covered Member ID Lamas Member ID Guarantor Name 05/02/2025 1 [facility] [id number] Tho Stanford [id number] Tho Stanford Notes Date Note Type Note Provider Name and Address Organization Details Recorded Time 12/02/2024 text/html Patient is here to reestablish with primary care provider at new office location. Patient does take montelukast for seasonal allergies and Flonase nasal spray. He also is on SkyRidge easy for psoriasis from the automatic developer. Not Available [facility] 12/04/2024 04:09:42 04/12/2025 text/html Obstructive Slee p Apnea F/UReported bypatient.Quality:sno ring with apnea Onset/Timing:chronic Severity:severe Alleviating factors:Patient is using CPAP therapy in his adherent to wearing nightly. He is not had any weight loss unfortunately with his CPAP therapy Prior Tests:home sleep study; PSG Prior Treatmentregular sleep schedule; CPAP Prior opinionPCPNotes:Susannah curiel has underlying obstructive sleep apnea and is on CPAP therapy. He is interested in seeing if insurance will cover for him to start injectable Zepbound therapy to help treat the approved indication for sleep apnea that Zepbound has obtained. LENNOX Pal Attn: Accounting,[address] [place], [address], [place] [facility] 05/01/2025 23:08:18
[2025-05-20 07:42] VITALS: BP 156/85; PULSE 78; RESP 18; TEMP 36.7; O2SAT 95
[2025-05-20] MEDS: LACTATED RINGERS 1,000 ML 150 ML IV CONT (07:53)
--- NOTE | 2025-05-20 08:21 | WPDANESEPPF ---
Anes - Initial Pre Proc Eval Procedure: Operation Date: 05/20/25 09:00 Proposed Procedures p Screening Colonoscopy - Nicolas Chang MD Date/Time: 05/20/25 08:21 Surgeon: Nicolas Chang MD Pre Op Diagnosis: malignant neoplasm of colon Patient Data Age: 69 Gender: M Height: 1.73 m Weight: 113.6 kg Last Vital Signs Temp 36.7 C 05/20/25 07:42 Pulse 78 05/20/25 07:42 Resp 18 05/20/25 07:42 BP 156/85 H 05/20/25 07:42 Pulse Ox 95 05/20/25 07:42 O2 Del Method Room Air 05/20/25 07:42 Allergies Allergy/AdvReac Type Severity Reaction Status Date / Time Penicillins Allergy Unknown Unknown Verified 05/20/25 07:41 Home Medications ?Medication ?Instructions ?Recorded ?Confirmed ?Type fluticasone propionate 50 1 spray intranasal DAILY 05/02/25 05/20/25 History mcg/actuation nasal spray,suspension (24 Hour Allergy Relief) montelukast 10 mg tablet 10 mg PO DAILY 05/02/25 05/20/25 History risankizumab-rzaa 150 mg/mL 150 mg subcut .Q4 months 05/02/25 05/02/25 History subcutaneous pen injector (Skyrizi) Patient hx anesthesia problems: none Family hx anesthesia problems: none Results Review: All pre-operative results and documents have been reviewed as part of the pre-operative evaluation. FORMERLY [facility], 1928–1983 Social History Social History Smoking status: Never smoker Alcohol intake: current Alcohol use details: 3 drinks a month Substance use: never Substance use type: does not use Living arrangements: with family Spiritual care concerns: No Anes - Eval Final PreProcedure Day of Procedure 05/20/25 08:21 Patient weight: obese Heart: regular rate and rhythm Lungs: clear to auscultation Airway: Mallampati scale class II Neurological: alert and oriented Last oral intake: >/= 8 hours ASA classification: III Emergent: no Anesthetic plan: proceed Anesthesia type and monitoring: general GIVS and standard monitoring Results Review: All pre-operative results and documents have been reviewed as part of the pre-operative evaluation. Informed Consent: The patient's anesthetic plan and its attendant risks and benefits were discussed with the patient/family/POA. Questions were solicited and answers provided to the satisfaction of the patient/family/POA.
--- NOTE | 2025-05-20 08:35 | PM.IMHP ---
H&P: HPI History of Present Illness Date/Time: 05/20/25 08:35 Chief Complaint: Family history of colon cancer Narrative: This patient has family history of colorectal cancer. his daughter had Rectal cancer at age 47. Review of Systems Review of Systems: All systems reviewed & are unremarkable except as noted in HPI and below PMFSH Social History Social History Smoking status: Never smoker Alcohol intake: current Alcohol use details: 3 drinks a month Substance use: never Substance use type: does not use Living arrangements: with family Spiritual care concerns: No Meds Home Medications and Allergies Home Medications ?Medication ?Instructions ?Recorded ?Confirmed ?Type fluticasone propionate 50 1 spray intranasal DAILY 05/02/25 05/20/25 History mcg/actuation nasal spray,suspension (24 Hour Allergy Relief) montelukast 10 mg tablet 10 mg PO DAILY 05/02/25 05/20/25 History risankizumab-rzaa 150 mg/mL 150 mg subcut .Q4 months 05/02/25 05/02/25 History subcutaneous pen injector (Skyrizi) Allergies Allergy/AdvReac Type Severity Reaction Status Date / Time Penicillins Allergy Unknown Unknown Verified 05/20/25 07:41 Vital Signs Vital Signs - 24 hr 05/20/25 07:42 Temperature 98.1 F Pulse Rate 78 Respiratory Rate 18 Blood Pressure 156/85 H Pulse Oximetry 95 Oxygen Delivery Room Air Exam Const: General: cooperative and healthy appearing Resp: Effort & Inspection: normal respiratory effort and able to speak in complete sentences Auscultation: clear to auscultation bilaterally Cardio: Rate: regular rate Rhythm: regular rhythm GI: Inspection: normal to inspection GI Palp: No No hepatosplenomegaly present Auscultation: normal bowel sounds Rectal Exam: deferred Skin: General skin exam: normal color Psych: Appearance: grossly normal Mental Status: mental status grossly normal Assessment and Plan Assessment and plan (1) Family history of colon cancer: Code(s): Z80.0 - Family history of malignant neoplasm of digestive organs Status: Acute Assessment and Plan: The patient is deemed a good candidate for the procedure. Consent signed. Will proceed.
[2025-05-20 09:00] VITALS: BP 132/69; PULSE 72; RESP 22; O2SAT 98
[2025-05-20 09:10] VITALS: BP 131/96; PULSE 60; RESP 21; O2SAT 98
[2025-05-20 09:20] VITALS: BP 128/76; PULSE 63; RESP 24; O2SAT 100
== END 2025-05-20 09:31 | disposition home or self-care (01) ==
PROVIDERS: PCP Physician Assistant; Visit Provider Internal Medicine Gastroenterology
PROC: 0DJD8ZZ Inspection of Lower Intestinal Tract, Via Natural or Artificial Opening Endoscopic (ICD-10-PCS; CPT 45378; principal; 2025-05-20 09:00)
DX: Z12.11 Encounter for screening for malignant neoplasm of colon (principal); K64.8 Other hemorrhoids; E66.9 Obesity, unspecified; Z68.38 Body mass index [BMI] 38.0-38.9, adult; Z79.85 Long-term (current) use of injectable non-insulin antidiabetic drugs; Z80.0 Family history of malignant neoplasm of digestive organs
CPT/HCPCS: 45378; J2003; J2704; J7120